=== PATIENT | male | born 1965 | race Caucasian/White ===

== ENCOUNTER 2025-02-03 09:19 | Outpatient (REF) | payer OTHER, SELFPAY ==
[2025-02-03 14:00] LABS: Blood Urea Nitrogen 16 mg/dL (9-16); Estimated Glomerular Filt Rate > 60
== END 2025-02-03 09:20 | disposition home or self-care (01) ==
LOC: HO.HMGCLDS 09:19
PROVIDERS: PCP Physician Assistant Medical; Visit Provider Urology
DX: R97.20 Elevated prostate specific antigen [PSA] (principal)
CPT/HCPCS: 36415; 82565; 84520